=== PATIENT | male | born 2000 | race Asian ===

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

== ENCOUNTER 2021-06-05 22:35 | Emergency (ER) | payer OTHER ==
[2021-06-05 22:57] VITALS: BP 118/72; PULSE 104; TEMP 99.7; BMI 24.3
== END 2021-06-06 01:37 | disposition home or self-care (01) ==
LOC: FER 22:35
DX: S20.212A Contusion of left front wall of thorax, initial encounter (principal); Y99.8 Other external cause status
CPT/HCPCS: 71101-TC-LT-FY; 99283-25

== ENCOUNTER 2023-04-10 18:50 | Inpatient (IN) | payer OTHER ==
[2023-04-10 19:01] VITALS: RESP 18
[2023-04-10] MEDS ORDERED: SODIUM PHOSPHATE/NA BIPHOS 133 ML ENEMA PR ONE (20:26)
[2023-04-10 21:38] LABS: BASO % 0.6 % (0-2.0); EOS % 2.9 % (0-4.5); HEMATOCRIT 43.7 % (35.4-49); LYMPH % 19.1 % (8-40); MCH 29.6 pg (25.7-33.7); MCHC 34.4 g/dl (32.0-35.9); MEAN CELL VOLUME 86.1 fl (80-96); MEAN PLT VOLUME 8.1 fl (7.5-11.1); MONO % 4.4 % (3.8-10.2); PLATELET COUNT 379 10^3/uL (134-434); RBC 5.08 M/mm3 (4.00-5.60); RDW 12.9 % (11.9-15.9); WHITE BLOOD COUNT 11.2 K/mm3 (4.0-10.0)
[2023-04-10 21:51] LABS: POTASSIUM 3.9 mmol/L (3.5-5.1)
[2023-04-10 21:54] LABS: CALCIUM 8.9 mg/dL (8.5-10.1)
[2023-04-10 21:55] LABS: ALBUMIN 4.2 g/dl (3.4-5.0); BLOOD UREA NITROGEN 11.9 mg/dL (7-18)
[2023-04-10 21:59] LABS: BILIRUBIN,TOTAL 0.4 mg/dL (0.2-1)
[2023-04-11] MEDS ORDERED: methylPREDNISolone NA SUCC 125 MG/2 ML VIAL IVPUSH ONE (02:39)
[2023-04-11] MEDS ORDERED: LACTATED RINGERS SOLUTION 1000 ML INFUS.BAG IV ONE (02:39)
[2023-04-11] MEDS ORDERED: methylPREDNISolone NA SUCC 40 MG/1 ML VIAL ONE (03:22)
[2023-04-11] MEDS ORDERED: POLYETHYLENE GLYCOL (HEALTHYLAX) 3350 17 GM PACKET ONE (08:17)
[2023-04-11] MEDS ORDERED: ENOXAPARIN NA (PORCINE) 40 MG/0.4 ML DISP.SYRIN SQ ONE (08:18)
[2023-04-11] MEDS: ENOXAPARIN NA (PORCINE) 40 MG/0.4 ML DISP.SYRIN SQ SCH (09:00)
[2023-04-11] MEDS ORDERED: POLYETHYLENE GLYCOL (HEALTHYLAX) 3350 17 GM PACKET PO SCH (10:00)
[2023-04-11 10:15] VITALS: BMI 25.4
[2023-04-11 11:26] LABS: HEMATOCRIT 44.6 % (35.4-49); HEMOGLOBIN 14.9 GM/dL (11.7-16.9); MCH 29.4 pg (25.7-33.7); MCHC 33.5 g/dl (32.0-35.9); MEAN CELL VOLUME 87.8 fl (80-96); MEAN PLT VOLUME 8.6 fl (7.5-11.1); PLATELET COUNT 375 10^3/uL (134-434); RBC 5.09 M/mm3 (4.00-5.60); RDW 12.8 % (11.9-15.9)
[2023-04-11 11:50] LABS: POTASSIUM 4.3 mmol/L (3.5-5.1)
[2023-04-11 11:51] LABS: CALCIUM 9.5 mg/dL (8.5-10.1)
[2023-04-11 11:52] LABS: BLOOD UREA NITROGEN 8.9 mg/dL (7-18)
[2023-04-11 11:55] LABS: CREATININE 0.9 mg/dL (0.55-1.3)
[2023-04-11 12:06] LABS: ERYTHROCYTE SEDIMENTATION RATE 33 mm/hr (0-10)
[2023-04-11] MEDS: SODIUM CHLORIDE 1,000 ML IV SCH ×2 (12:08→22:09)
[2023-04-11] MEDS ORDERED: SODIUM PHOSPHATE/NA BIPHOS 133 ML ENEMA PR ONE ×2 (13:47→14:00)
[2023-04-11] MEDS: POLYETHYLENE GLYCOL (HEALTHYLAX) 3350 17 GM PACKET PO SCH ×2 (13:52→22:10)
[2023-04-11] MEDS ORDERED: MINERAL OIL ENEMA 133 ML ENEMA RC ONE ×2 (14:30→15:30)
[2023-04-12] MEDS: SODIUM CHLORIDE 1,000 ML IV SCH (01:10)
[2023-04-12] MEDS: POLYETHYLENE GLYCOL (HEALTHYLAX) 3350 17 GM PACKET PO SCH ×2 (05:45→13:35)
[2023-04-12] MEDS: ENOXAPARIN NA (PORCINE) 40 MG/0.4 ML DISP.SYRIN SQ SCH (09:33)
[2023-04-12 09:41] VITALS: BP 106/65; PULSE 80; TEMP 97.8
[2023-04-12 10:04] LABS: BASO % 0.9 % (0-2.0); EOS % 4.8 % (0-4.5); HEMATOCRIT 38.7 % (35.4-49); HEMOGLOBIN 13.1 GM/dL (11.7-16.9); LYMPH % 48.8 % (8-40); MCH 29.7 pg (25.7-33.7); MCHC 33.9 g/dl (32.0-35.9); MEAN CELL VOLUME 87.5 fl (80-96); MEAN PLT VOLUME 8.3 fl (7.5-11.1); MONO % 7.3 % (3.8-10.2); NEUT % 38.2 % (42.8-82.8); PLATELET COUNT 319 10^3/uL (134-434); RBC 4.42 M/mm3 (4.00-5.60); RDW 12.3 % (11.9-15.9); WHITE BLOOD COUNT 5.8 K/mm3 (4.0-10.0)
[2023-04-12 10:22] LABS: POTASSIUM 3.7 mmol/L (3.5-5.1)
[2023-04-12 10:27] LABS: CALCIUM 8.4 mg/dL (8.5-10.1)
[2023-04-12 10:28] LABS: BLOOD UREA NITROGEN 6.9 mg/dL (7-18)
[2023-04-12 10:30] LABS: CREATININE 0.9 mg/dL (0.55-1.3)
[2023-04-12 10:32] LABS: BILIRUBIN,TOTAL 0.5 mg/dL (0.2-1)
[2023-04-12 10:45] LABS: ERYTHROCYTE SEDIMENTATION RATE 18 mm/hr (0-10)
[2023-04-12 10:51] LABS: ALBUMIN 3.2 g/dl (3.4-5.0); TOT PROT 6.8 g/dl (6.4-8.2)
[2023-04-12 11:26] LABS: URINE APPEARANCE CLEAR; URINE BILIRUBIN NEGATIVE (NEGATIVE); URINE COLOR YELLOW; URINE GLUCOSE (UA) NEGATIVE (NEGATIVE); URINE KETONE 1+ (NEGATIVE); URINE LEUK ESTERASE NEGATIVE (NEGATIVE); URINE NITRITE NEGATIVE (NEGATIVE); URINE PROTEIN NEGATIVE (NEGATIVE); URINE UROBILINOGEN 0.2 mg/dL (0.2-1.0)
== END 2023-04-12 17:28 | disposition home or self-care (01) | DRG 245 ==
LOC: JER 18:50 → JERBED 04-11 02:41 → J8W 04-11 09:05 → OBSVTOIN 04-11 15:09
PROVIDERS: ADMIT Internal Medicine; ATTEND Internal Medicine
DX: K50.118 Crohn's disease of large intestine with other complication (principal); D72.829 Elevated white blood cell count, unspecified; K59.09 Other constipation
CPT/HCPCS: 36415; 74019-TC-FY; 74177-TC; 80048; 80053; 81003; 83605; 84443; 85025; 85027; 85651; 86140; 87086; 99285-25; G0378; Q9967

== ENCOUNTER 2024-06-05 22:28 | Emergency (ER) | payer OTHER ==
[2024-06-05 22:39] VITALS: BP 132/77; RESP 16; TEMP 98.8; BMI 25.2
[2024-06-05] MEDS: SODIUM CHLORIDE 0.9% 500 ML INFUS.BAG IV ONE (23:02)
[2024-06-05 23:16] LABS: HEMATOCRIT 48.2 % (35.4-49); HEMOGLOBIN 15.8 G/dL (11.7-16.9); MCH 29.8 pg (25.7-33.7); MCHC 32.8 g/dl (32.0-35.9); MEAN CELL VOLUME 90.7 fl (80-96); PLATELET COUNT 327.3 10^3/uL (134-434); RBC 5.31 10^6/uL (4.00-5.60); RDW 13.9 % (11.9-15.9); WHITE BLOOD COUNT 7.6 10^3/uL (4.0-10.8)
[2024-06-05 23:17] LABS: PLATELET ESTIMATE SLT INCREASE
[2024-06-05 23:41] LABS: ALBUMIN 4.8 g/dl (3.4-5.0); ALK PHOS 79 U/L (45-117); ANION GAP 9 mmol/L (4-13); BILIRUBIN,TOTAL 0.5 mg/dl (0.2-1); CALCIUM 9.6 mg/dl (8.5-10.1); CHLORIDE 105 mmol/L (98-107); CO2 25 mmol/L (21-32); CREATININE 1.1 mg/dl (0.6-1.3); GLUCOSE,RANDOM 111 mg/dl (74-106); MAGNESIUM 2.1 mg/dL (1.8-2.4); PHOSPHOROUS 4.2 (2.5-4.9); POTASSIUM 3.9 mmol/L (3.5-5.1); SGOT/AST 14 U/L (15-37); SGPT/ALT 17 U/L (7-52); SODIUM 139 mmol/L (136-145); TOT PROT 8.3 g/dl (6.4-8.2)
[2024-06-06] MEDS ORDERED: ONDANSETRON 4 MG/2 ML VIAL ONE (00:36)
[2024-06-06] MEDS ORDERED: FAMOTIDINE 20 MG/50 ML IVPB 20 MG/50 ML MG IVPB ONE (00:36)
[2024-06-06] MEDS ORDERED: MAG HYDROX/AL HYDROX/SIMETH 30 ML UNIT-DOSE CUP ONE (00:37)
[2024-06-06 00:55] VITALS: PULSE 97
== END 2024-06-06 00:59 | disposition home or self-care (01) ==
LOC: FER 22:28
DX: R07.89 Other chest pain (principal); R00.0 Tachycardia, unspecified
CPT/HCPCS: 36415; 71046-TC-FY; 80053; 83735; 84100; 84443; 84484; 85027; 85379; 93005; 99285-25

== ENCOUNTER 2024-06-26 20:10 | Emergency (ER) | payer OTHER ==
[2024-06-26 20:28] VITALS: BP 125/69; PULSE 100; RESP 16; TEMP 99.1; BMI 26.2
[2024-06-26] MEDS ORDERED: IBUPROFEN 600 MG TABLET (FP) PO ONE (20:32)
[2024-06-26] MEDS: IBUPROFEN 600 MG TABLET (FP) PO ONE (20:34)
== END 2024-06-26 20:36 | disposition home or self-care (01) ==
LOC: FER 20:10
DX: Z04.1 Encounter for examination and observation following transport accident (principal)
CPT/HCPCS: 99283-25